=== PATIENT | female | born 1985 | race Caucasian/White ===

== ENCOUNTER 2019-11-06 16:58 | Emergency (ER) | payer OTHER ==
[~2019-11-06] VITALS: Ht 167.6 cm; Wt 81.7 kg
[2019-11-06] MEDS ORDERED: AUGMENTIN250 MG/5 M PO (18:25)
[2019-11-06 18:43] VITALS: BP 113/71
== END 2019-11-06 18:44 | disposition home or self-care (01) ==
LOC: M.ERS 16:58
DX: S61.431A Puncture wound without foreign body of right hand, initial encounter (principal); S61.531A Puncture wound without foreign body of right wrist, initial encounter; Z98.890 Other specified postprocedural states; W54.0XXA Bitten by dog, initial encounter; Y93.89 Activity, other specified; Y92.89 Other specified places as the place of occurrence of the external cause; Y99.9 Unspecified external cause status